=== PATIENT | female | born 1965 | race Two or more races ===

== ENCOUNTER 2025-06-22 09:16 | Outpatient (OUT) | payer MEDICAID, SELFPAY ==
--- OUTSIDE RECORDS SUMMARY | 2023-12-30 11:59 | XMS_ITS | Continuity of Care Document ---
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 Role Phone Benoit Suero DO Unavailable Unavailable Allergies, Adverse Reactions, Alerts Substance Reaction Status Criticality No Known Allergies Active No Inform ation Medications Medication Instructions Dosage Effective Dates (start - stop) Status Comments Trelegy Ellipta 200 mcg-62.5 mcg-25 mcg powder for inhalation inhale 1 puff by inhalation route every day at the same time each day 1.00 puff - Active albuterol sulfate HFA 90 mcg/actuation aerosol inhaler inhale 2 puff by inhalation route every 4 - 6 hours as needed 180 MCG - Active prednisone 20 mg tablet take 1 tablet by oral route 2 times every day bid for 4 days then 1/2 qd for 8 days 20 MG - Active promethazine-DM 6.25 mg-15 mg/5 mL oral syrup take 5 milliliter by oral route every 6 - 8 hours as needed, not to exceed 30 mL in 24 hours 5 milliliter - Active Singulair 10 mg tablet take 1 tablet by oral route every day in the evening 10 MG - Active PreviDent 5000 Booster Plus 1.1 % dental paste Place pea size toothpaste on wet toothbrush and brush thoroughly before bed. Spit excess and do not rinse. Do not eat or drink after use. - Active Prolia 60 mg/mL subcutaneous syringe inject 1 milliliter by subcutaneous route every 6 months in the upper arm, upper thigh or abdomen 60 MG - Active Calcium 500 + D 500 mg (1,250 mg)-200 unit tablet 2 daily - Active Wellbutrin XL 150 mg 24 hr tablet, extended release take 1 tablet by oral route every day 150 MG - Active calcium citrate 250 mg tablet take 2 tablets twice daily - Active omeprazole 20 mg tablet,delayed release 1 tablet by mouth once a day - Active Mucinex DM 30 mg-600 mg tablet,extended release 12 hr take 1 tablet by oral route every 12 hours as needed 1.00 tablet - Active loratadine 10 mg tablet take 1 tablet by oral route every day 10 MG - Active Vitamin D3 50 mcg (2,000 unit) tablet - Active trazodone 150 mg tablet take 1 tablet by oral route every day 150 MG - Active clonidine HCl 0.3 mg tablet take 1 tablet by oral route 2 times every day 0.3 MG - Active Abilify Maintena 400 mg intramuscular suspension,extended release inject (400MG) by intramuscular route every month 400 MG - Active Cymbalta 20 mg capsule,delayed release take 1 capsule by oral route 2 times every day - Active folic acid 1 mg tablet take 1 tablet by oral route every day 1 MG - Active Procedures Procedure Date IMMUNIZATION ADMIN FLU VAC NO PRSV 4 SARAH 3 YRS+ OFFICE/OUTPATIENT VISIT, EST COVID-19 Antigen Test COVID-19 Antigen Test OFFICE/OUTPATIENT VISIT, EST OFFICE/OUTPATIENT VISIT, EST Intraoral-periapical 1st Film Limcbthfp-bglzdcbwgf-efry Additional Apr Rgzvziaee-jyqxwrceii-pysc Additional Apr Nutrit Couns For Control Of [place] Dis Apr Oral Hygiene Instruction Prophylaxis Adult Periodic Oral Eval Estab Patient 2021 Oral Hygiene Instruction Treatment Completed Resin Two Surfaces Anterior Resin Two Surfaces Anterior Resin Three Surfaces Anterior 1 Resin Three Surfaces Anterior 1 OFFICE/OUTPATIENT VISIT, EST Intraoral-periapical 1st Film 1 Kkcltozgc-qextlgxhcy-ncxt Additional Jul Eqpbhqjag-ksmijkbbyz-lnfz Additional Jul Resin Three Surfaces Anterior 1 Resin Two Surfaces Anterior Resin 4+ W/incis Angle Anterior 021 Resin Three Surfaces Anterior 1 Oral Hygiene Instruction ROUTINE VENIPUNCTURE OFFICE/OUTPATIENT VISIT, EST Oral Hygiene Instruction Prophylaxis Adult OFFICE/OUTPATIENT VISIT, EST OFFICE/OUTPATIENT VISIT, EST OFFICE/OUTPATIENT VISIT, EST OFFICE/OUTPATIENT VISIT, EST OFFICE/OUTPATIENT VISIT, EST OFFICE/OUTPATIENT VISIT, EST OFFICE/OUTPATIENT VISIT, EST OFFICE/OUTPATIENT VISIT, EST OFFICE/OUTPATIENT VISIT, EST OFFICE/OUTPATIENT VISIT, EST No Charge Prophylaxis Adult Nutrit Couns For Control Of [place] Dis Jun Oral Hygiene Instruction PPE Panoramic Film Intraoral-periapical 1st Film 0 Tjxpnonix-hobbnvbpqr-zbuk Additional Jun Obgavnyky-fjutkilmbn-ypfo Additional Jun Comp Oral Eval New/estab Patient 2019 Oral Hygiene Instruction PPE Advance Directives Directive Yes / No Effective Date File Name No Information Encounters Encounter Description Practice Location Reason(s) For Visit Diagnoses Date Provider Providers Copied on Encounter [facility], [address] [place] [address], [id number] , [place] tel:[phone] [facility] No Information 4 Plank DO Laboy. [address] [place] [address], [id number] , [place]. tel:[phone] [facility], [address] [place] [address], [id number] , [place] tel: [phone] [facility] No Information 3 Visci DO Eliceo. [address], [place], [id number] , [place]. tel: [phone] OFFICE/OUTPA TIENT VISIT, [facility], [address] [place] [address], [id number] , [place] tel: [phone] [facility] sick/er f/u (chief complaint) Chronic obstructive pulmonary disease, unspecified COPD typeBody mass index [BMI] 19.9 or less, adult 3 Toward MD Funes. [address] [place] [address], [id number] , [place]. tel: [phone] [facility], [address] [place] [address], [id number] , [place] tel: [phone] COVID [facility] Encounter for screening for COVID-19 3 Visci DO Eliceo. [address] [place] [address], [id number] , [place]. tel: [phone] OFFICE/OUTPA TIENT VISIT, [facility], [address] [place] [address], [id number] , [place] tel: [phone] [facility] F/U (chief complaint) Body mass index [BMI] 20.0-20.9, adultCogwheel rigidityTremorTachyc ardia 2 Nimo Bruno. [address] [place] [address], [id number] , [place]. tel:[phone] OFFICE/OUTPA TIENT VISIT, [facility], [address] [place] [address], [id number] , [place] tel: [phone] [facility] refill (chief complaint) Chronic obstructive pulmonary disease, unspecified COPD typeAnxietyEssential (primary) hypertensionCigarett e smoker motivated to quitScreening for lung cancerBody mass index [BMI] 21.0-21.9, adult Wilfred-2 2 Toward MD Funes. [address], [place], [id number] , [place]. tel:[phone] [facility], [address] [place] [address], [id number] , [place] tel: [phone] [facility] Adult Prophy (chief complaint) Encounter for screening for dental disorders 2 Kristina Oakes. [address] [place], [address], [place]. tel: [phone] [facility], [address] [place] [address], [id number] , [place] tel: [phone] [facility] Fill (chief complaint) Encounter for screening for dental disorders 1 Abel Mcneal. [address] [place] [address], [id number] , [place]. tel: [phone] [facility], [address] [place] [address], [id number] , [place] tel: [phone] [facility] No Information 1 Nimo Bruno. [address] [place] [address], [id number] , [place]. tel: [phone] OFFICE/OUTPA TIENT VISIT, EST [facility], [address] [place] [address], [id number] , [place] tel: [phone] [facility] f/u (chief complaint) Age-related osteoporosis without current pathological fractureEssential (primary) hypertensionEsophage al varices without bleedingBody mass index [BMI] 21.0-21.9, adult Sep-2 1 Plank DO Benoit. [address] [place] [address], [id number] , [place]. tel:[phone] [facility], [address] [place] [address], [id number] , [place] tel: [phone] [facility] Filling (chief complaint) Encounter for screening for dental disorders 1 Abel Mcneal. [address] [place] [address], [id number] , [place]. tel: [phone] [facility], [address] [place] [address], [id number] , [place] tel: [phone] [facility] Osteoporosis, unspecified osteoporosis type, unspecified pathological fracture presenceClosed fracture of multiple ribs, unspecified laterality, sequela 1 Liborio Siegel. [address] [place] [address], [address], [place]. tel: [phone] [facility], [address] [place] [address], [id number] , [place] tel: [phone] [facility] No Information 1 Liborio Siegel. [address] [place] [address], [id number], [place]. tel: [phone] OFFICE/OUTPA TIENT VISIT, [facility], [address] [place] [address], [id number] , [place] tel: [phone] [facility] b/p follow up (chief complaint) Osteoporosis, unspecified osteoporosis type, unspecified pathological fracture presenceHypertension , unspecified typeShortness of breathBody mass index [BMI] 20.0-20.9, adultHistory of rib fracture 1 Liborio Siegel. [address] [place] [address], [address], [place]. tel: [phone] [facility], [address] [place] [address], [id number] , [place] tel: [phone] [facility] Prophy (chief complaint) Encounter for screening for dental disorders 1 Abel Mcneal. [address] [place] [address], [id number] , [place]. tel: [phone] OFFICE/OUTPA TIENT VISIT, [facility], [address] [place] [address], [id number] , [place] tel: [phone] HO [facility] F/U BP (chief complaint) Body mass index [BMI] 19.9 or less, adultRib painHypertension, unspecified typeHeart rate fastClosed fracture of multiple ribs, unspecified laterality, sequelaShortness of breathChronic obstructive pulmonary disease, unspecified COPD type 1 Liborio Siegel. [address] [place] [address], [address], [place]. tel: [phone] OFFICE/OUTPA TIENT VISIT, [facility], [address] [place] [address], [id number] , [place] tel: [phone] HO Mc F/U R Rib Pain (chief complaint) Body mass index [BMI] 20.0-20.9, adultHypertension, unspecified typeDizzinessClosed fracture of one rib of right side with routine healing, subsequent encounterCigarette smoker motivated to quit 1 Liborio Siegel. [address] [place] [address], [id number], [place]. tel: [phone] OFFICE/OUTPA TIENT VISIT, [facility], [address] [place] [address], [id number] , [place] tel: [phone] [facility] Alexandro BP recheck (chief complaint) Rib painHypertension, unspecified typeBody mass index [BMI] 19.9 or less, adultDizzinessNausea and vomiting, intractability of vomiting not specified, unspecified vomiting type 1 Liborio Siegel. [address] [place] [address], [address], [place]. tel: [phone] OFFICE/OUTPA TIENT VISIT, [facility], [address] [place] [address], [id number] , [place] tel: [phone] HO Mc BP Check (chief complaint) Body mass index [BMI] 20.0-20.9, adultHeart rate fastHypertension, unspecified typeCigarette smoker motivated to quit 1 Liborio Siegel. [address] [place] [address], [id number], [place]. tel: [phone] OFFICE/OUTPA TIENT VISIT, [facility], [address] [place] [address], [id number] , [place] tel: [phone] [facility] Alexandro f/u bp (chief complaint) Body mass index [BMI] 20.0-20.9, adultHypertension, unspecified typeCigarette smoker motivated to quit 1 Liborio Siegel. [address] [place] [address], [address], [place]. tel: [phone] OFFICE/OUTPA TIENT VISIT, [facility], [address] [place] [address], [id number] , [place] tel: [phone] [facility] Alexand[facility] BP Check (chief complaint) Body mass index [BMI] 20.0-20.9, adultCoughHypertensi on, unspecified typeClosed fracture of one rib of right side with routine healing, subsequent encounter 1 Liborio Siegel. [address] [place] [address], [address], [place]. tel: [phone] [facility], [address] [place] [address], [id number] , [place] tel: [phone] [facility] Closed fracture of multiple ribs of right side, initial encounter 1 Liborio Siegel. [address] [place] [address], [address], [place]. tel: [phone] OFFICE/OUTPA TIENT VISIT, [facility], [address] [place] [address], [id number] , [place] tel: [phone] [facility] (chief complaint) Rib painCoughNasal congestion 1 Liborio Siegel. [address] [place] [address], [address], [place]. tel: [phone] OFFICE/OUTPA TIENT VISIT, [facility], [address] [place] [address], [id number] , [place] tel: [phone] [facility], resp infection (chief complaint) Shortness of breathCoughLoss of smellNasal congestionRib pain 1 Liborio Siegel. [address] [place] [address], [address], [place]. tel: [phone] OFFICE/OUTPA TIENT VISIT, [facility], [address] [place] [address], [id number] , [place] tel: [phone] [facility] f/u bp/labs (chief complaint) Body mass index [BMI] 19.9 or less, adultHypertension, unspecified typeNeeds smoking cessation educationCoughChroni c obstructive pulmonary disease, unspecified COPD typeAscending aortic aneurysm 1 Liborio Sigeel. [address] [place] [address], [address], [place]. tel: [phone] OFFICE/OUTPA TIENT VISIT, [facility], [address] [place] [address], [id number] , [place] tel: [phone] [facility] est care (chief complaint)P HQ (chief complaint) Hypertension, unspecified typeFatigue, unspecified typeAnxietyDepressio n, unspecified depression typeScreening mammogram, encounter forNeeds smoking cessation educationEncounter to establish careAsthma, unspecified asthma severity, unspecified whether complicated, unspecified whether persistentHeart rate fastBody mass index [BMI] 20.0-20.9, adult 0 Liborio Siegel. [address] [place] [address], [address], [place]. tel: [phone] [facility], [address] [place] [address], [id number] , [place] tel: [phone] Dental Clinic Encounter for screening for dental disorders 0 Abel Mcneal. [address] [place] [address], [id number] , [place]. tel: [phone] [facility], [address] [place] [address], [id number] , [place] tel: [phone] [facility] Prophy (chief complaint) Encounter for screening for dental disorders 0 Negro Velasco. [address], [place], [id number] , [place]. tel: [phone] [facility], [address], [place], [id number] , [place] tel: [phone] Dental Clinic Encounter for screening for dental disorders 0 0 Abel Mcneal. [address], [place], [id number] , [place]. tel: [phone] Family History Family Member Type Diagnosis Age At Onset No Information Immunizations Vaccine Date Status Comments Flulaval/ Fluarix administered Source: Ne w Immunization Record Ashley COVID refused Source: New Im munization Record Payers Payer name Insurance type Covered democrat ID Authorkristena cathleenshelby(s) Anthem Medicaid ABD [id number] [id number] Medicaid Wrap - [facility] [place] [id number] Anthem Medicaid ABD 0223 [id number] Medicaid Wrap - [facility] [place] [id number] Medicaid Wrap - [facility] [place] [id number] Social History Type Description Quantity Date Captured Comments Alcohol Use Details Unknown Caffeine Use Details Unknown Tobacco Use Status No Information Smoking Status No Information Sex Female Sexual Orientation Straight or heterosexual Gender Identity Female Chief Complaint And Reason For Visit No Information Reason For Referral Reason For Referral No Information Plan Of Treatment Date Type Action Status Goal Diabetes screening. Due on due Goal Urinalysis. Due on 24 due Goal Depression scree nadege. Due on due Goal Tdap Vaccine. Due on 2023 due Goal PRAPARE ASSESSMENT. Due on due Goal FIT. Due on due Goal Colonoscopy. Due on 024 due Goal Tdap. Due on due Goal Hepatitis C scre ening. Due on due Goal Lipid panel. Due on due Goal Unhealthy drug u se screening. Due on due Goal CT-Colonography. Due on due Goal Influenza vaccine. Due on due Goal FOBT. Due on due Goal HPV. Due on due Goal FIT-DNA. Due on due Goal Zoster vaccine ( ). Due on due Goal Lipid panel. Due on due Goal FOBT. Due on due Goal Hep A. Due on du e Goal Hepatitis C scre ening. Due on due Goal Unhealthy drug u se screening. Due on due Goal Diabetes screening. Due on due Goal Urinalysis. Due on due Goal PRAPARE ASSESSMENT. Due on due Goal FIT. Due on due Goal Influenza vaccine. Due on due Goal Tdap. Due on due Goal Zoster vaccine ( ). Due on due Goal Colonoscopy. Due on 023 due Goal FIT-DNA. Due on due Goal Hep A. Due on du e Goal Depression scree nadege. Due on due Goal HPV. Due on due Goal Tdap Vaccine. Due on [address]-Colonography. Due on due Goal Depression scree nadege. Due on due Goal Tdap. Due on due Goal PRAPARE ASSESSMENT. Due on due Goal Colonoscopy. Due on due Goal Influenza vaccine. Due on due Goal FOBT. Due on due Goal Zoster vaccine ( ). Due on due Goal Lipid panel. Due on 025 due Goal Diabetes screening. Due on due Goal Urinalysis. Due on due Goal PRAPARE ASSESSMENT. Due on due Goal Tdap. Due on due Goal Colonoscopy. Due on 023 due Goal Influenza vaccine. Due on due Goal Zoster vaccine ( ). Due on due Goal Lipid panel. Due on 025 due Goal FOBT. Due on due Goal Depression scree nadege. Due on due Goal Diabetes screening. Due on due Goal Urinalysis. Due on due Goal Lifestyle education regardin g diet completed Goal Urinalysis. Due on due Goal Diabetes screening. Due on due Goal PRAPARE ASSESSMENT. Due on due Goal Lipid panel. Due on due Goal Depression scree nadege. Due on due Goal FOBT. Due on due Goal Tdap. Due on due Goal Influenza vaccine. Due on due Goal Colonoscopy. Due on due Goal Zoster vaccine ( ). Due on due Goal Lifestyle education regardin g diet completed Goal ECG. Due on due Goal Urinalysis. Due on due Goal Diabetes screening. Due on due Goal FOBT. Due on due Goal Zoster vaccine ( ). Due on due Goal Tdap. Due on due Goal Influenza vaccine. Due on due Goal Colonoscopy. Due on due Goal Depression scree nadege. Due on due Goal Lipid panel. Due on due Goal Weight-reducing diet educati on completed Goal Diabetes screening. Due on due Goal ECG. Due on due Goal Urinalysis. Due on due Goal Diabetes screening. Due on N due Goal Urinalysis. Due on due Goal ECG. Due on due Goal ECG. Due on due Goal Urinalysis. Due on due Goal Diabetes screening. Due on due Goal Dietary manageme nt education, guidance, and counseling completed Goal Urinalysis. Due on due Goal Diabetes screening. Due on due Goal ECG. Due on due Goal Urinalysis. Due on due Goal Diabetes screening. Due on due Goal ECG. Due on due Goal ECG. Due on due Goal Diabetes screening. Due on A due Goal Urinalysis. Due on due Goal ECG. Due on due Goal Urinalysis. Due on due Goal Diabetes screening. Due on due Goal Dietary manageme nt education, guidance, and counseling completed Goal Urinalysis. Due on due Goal ECG. Due on due Goal Diabetes screening. Due on due Goal ECG. Due on due Goal Diabetes screening. Due on due Goal Urinalysis. Due on due Goal Dietary manageme nt education, guidance, and counseling completed Goal ECG. Due on due Goal Diabetes screening. Due on due Goal Urinalysis. Due on due Goal Dietary manageme nt education, guidance, and counseling completed Goal Diabetes screening. Due on due Goal ECG. Due on due Goal Urinalysis. Due on due Goal Dietary manageme nt education, guidance, and counseling completed Goal Tobacco cessation counseling completed Goal Urinalysis. Due on due Goal Diabetes screening. Due on A due Goal ECG. Due on due Goal Dietary manageme nt education, guidance, and counseling completed Goal ECG. Due on due Goal Diabetes screening. Due on due Goal Urinalysis. Due on due Goal Dietary manageme nt education, guidance, and counseling completed Goal Tobacco cessation counseling completed Goal Diabetes screening. Due on due Goal ECG. Due on due Goal Urinalysis. Due on due Goal Dietary manageme nt education, guidance, and counseling completed Goal ECG. Due on due Goal Urinalysis. Due on due Goal Diabetes screening. Due on due Goal Urinalysis. Due on due Goal ECG. Due on due Goal Diabetes screening. Due on due Goal ECG. Due on due Goal Diabetes screening. Due on due Goal Urinalysis. Due on due Goal ECG. Due on due Goal Diabetes screening. Due on due Goal Urinalysis. Due on due Goal Tobacco cessation counseling completed Goal Dietary manageme nt education, guidance, and counseling completed Goal Diabetes screening. Due on due Goal Urinalysis. Due on due Goal ECG. Due on due Goal Dietary manageme nt education, guidance, and counseling completed Goal Tobacco cessation counseling completed Referral Ordered: Neurology (related to Tremor) ordered Referral Ordered: Referrals: Neurology. Evaluate and treat ordered Referral Ordered: X-RAY EXAM CHEST 2 VIEWS ordered Referral Ordered: ELECTROCARDIOGRAM, COMPLETE ordered Referral Ordered: CT Thorax W/O Dye ordered Referral Ordered: Orthopedic Surgery (related to Closed fracture of multiple ribs, unspecified laterality, sequela) ordered Referral Ordered: Referrals: Orthopedic Surgery. Evaluate and treat ordered Referral Ordered: Referrals: Rheumatology. Evaluate and treat ordered Referral Ordered: Pulmonology (related to Chronic obstructive pulmonary disease, unspecified COPD type) ordered Referral Ordered: X-Ray Exam Of Ribs/Chest Posteroanterior 4 Views ordered Referral Ordered: DXA BONE DENSITY, AXIAL ordered Referral Ordered: Complete PFT With Bronchodilator ordered Referral Ordered: Referrals: Pulmonology. Evaluate and treat ordered Referral Ordered: X-Ray Exam Of Ribs Bilateral 3 Views ordered Referral Ordered: X-RAY EXAM CHEST 4+ VIEWS ordered Referral Ordered: Pulmonology (related to Chronic obstructive pulmonary disease, unspecified COPD type) ordered Referral Ordered: Referrals: Pulmonology. Evaluate and treat. Diagnostic testing ordered Referral Ordered: BREATHING CAPACITY TEST ordered Referral Ordered: SCR MAMMO BI INCL CAD ordered Future Order: Lab Order CBC With Differential/Platelet ([id number]), Ordered on: Ordered Future Order: Lab Order Comp. Me tabolic Panel (14) ([id number]), Ordered on: Ordered Future Order: Lab Order Hemoglob in A1c ([id number]), Ordered on: Ordered Future Order: Lab Order Lipid Pa ivonne With LDL/HDL Ratio ([id number]), Ordered on: Ordered Future Order: Lab Order TSH+Free T4 ([id number]), Ordered on: Ordered Future Order: Lab Order Uric Aci d, Serum ([id number]), Ordered on: Ordered Future Order: Lab Order Vitamin B12 and Folate ([id number]), Ordered on: Ordered Future Order: Lab Order Vitamin D, 25-Hydroxy ([id number]), Ordered on: Ordered Future Order: Lab Order Magnesiu m, Serum ([id number]), Ordered on: Ordered Future Order: Lab Order Basic Me tabolic Panel (8) ([id number]), Sent on: Sent Future Order: Lab Order 2019 Nov el Coronavirus (COVID-19), MANI ([id number]), Ordered on: Ordered History Of Present Illness Encounter Date Complaint History Of Isaac nt Illness sick/er f/u Pt here for sick visit/er f/u. Covid test negative. Pt states she was evaluated [place] [facility] about 2 [place] ago d/t sob, states she was dx with Influenza A. Pt states she was prexcribed Tamaflu, Mucinex , Predinisone and Teslon Pearls. Pt here today with c/o continued cough, chest tightness and sob. GRACE KenneyHere for ER f/u after influenza A. she has not fuly recovered yet. still hs some cough and sob. off maintenance inhaler. former smoker quit about 1.5 yrs ago. no current fever, mild to mod cough mostly [employer]. COVID - today. F/U Pt is here for F /U due to being worried that she has parkinsons disease. Pt states she has a prominent tremor in her whole body. States it almost reminds her of if she were to have a seizure. States she also has shuffling gait. Denies any drooling when eating or drinking. States she is also concerned because her heart rate is always high, states it sometimes feels like her heart skips a beat. Denies any other concerns. States she does have depression and anxiety but is on medication. Denies smoking.//Malik EDWARDS.Mammogram: 3 years ago.//Malik EDWARDS,Colonoscopy: 4 years ago.//Malik EDWARDS. refill Patient requesti ng refill on cymbicort, lisinopril, singulair, and dulera. Has the dulera with her. Was prescribed it a month ago at [facility] for COPD. Patient states she was not SOB/Wheezing until she ran out of dulera. Patient was using dulera QID. Ran out about 2 weeks ago. Patient denies any distress today and does not appear in distress. Has been going to urgent care for refills on medications so has not run out up until this point.Maura Salazar RNHere for f/u on htn, copd, mood, smoking. She is doing ok on current meds, likes dulera more than symbicort. Has not had a lung cance rscreen , last ct chset was nov 2020 for CTA. Last labs was about a year ago. Other issues are doing fine. MD GABRIEL Adult Prophy Adult Prophy Fill f/u Pt here for f/u appt. Pt c/o feeling fatigued, dizzy and her body just feels heavy, pt states this started about 1 month ago. Pts BP is 98/68, states she has not taken her bp medication today. Pt denies any other issues or concerns. GRACE Kenney Filling Continue with tr sintia b/p follow up Pt here for f/u BP. Pt c/o feeling sob and congested, states she was evaluated at [facility] urgent care about 5 days ago and prescribed an antibiotic and steroids. Pt states she really doesn't feel any better. Pt denies any other issues or concerns. GRACE KenneyVenipuncture successful on first attempt in R AC, pt tolerated well. Tatyana Kenney noted. States she had a sinus infection and has completed the antibiotic and steroids. Continues with breathing treatments. States she tends to get short of breath quicker than usual. Denies any fever. Has not obtained PFT yet, states she will call to reschedule. States the Xrays taken at urgent care showed rib fractures on left side, number 3,4,5,6 from her previous fall. Was informed they were healing properly. Taking BP medications, including the metoprolol, 1/2 tab as discussed. HR improved, states she saw it was 88 the other day. Also taking her lisinopril/hctz. Denies any dizziness or recent falls.Discussed results of bone density scan completed. May 30. ROGELIO Mancera Prophy F/U BP Pt here today to follow up BP and discuss a recent fall. Pt states her BP was good this morning. Pt states that been up and down but then states its been really good. Pt states that they had Taco night last . Pt states there was salsa on the floor and she slipped, flew in the air and fell on her back. Pt states her back nor head hurt which she hit both and her ribs. PT states she did not go to the ER at all. Pt states she knows that she broke her ribs. Pt states she talked about getting a x-ray and states she didnt need one. Pt states she is in so much pain that she is having issues with breathing. Pt states she didnt decline to schedule she states she was in [place] at the time they called. Pt states she is going to reschedule. PT states her breathing is bad and would like to get Mucinex. No other issues or concernsTGkierra Dillon noted. Discussed with patient history of falling and breaking ribs and also weight loss. States she was trying to lose weight to get rib of her abdominal fat and admits to not eating much. States she is having hard time taking deep breaths again with pain to left side over ribs. Discussed missed pulmonary appt; states she was out of town and will call to get appt rescheduled.Admits to not taking her metoprolol, is concerned it will make her BP too low. Denies any recent episodes of dizziness. 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 Pt states it is but it inst getting better. Pt states she feels like she had a set back last night. pt states she felt like she moved wrong and it went bloop . No other issues or concernsTGkierra Dillon noted. Brought home blood pressure cuff in to review readings. Majority of readings were elevated, 148/100's, 153/101 HR ranged from 102-125. Few readings were around 117/80's. Patient feels these readings are too low for her and states she is not taking her metoprolol. Patient had called last week to inform of passing out at home and was advised to go to the ER. States she did not go, and she is feeling better. No longer dizzy. Did stop smoking which helped decrease her cough. Has not used her nicotine patch, but is taking the wellbutrin to help with cravings. States rib pain remains, but is getting a little better. Unsure if Naproxen is helping her rib pain. States she is trying to plan another trip to [place], but recently lost her job from having to call off so much. Explained need to get better control of BP and dizziness prior to going to [place]. Requests refill on some of her medications, including ProAir and Singulair. ROGELIO Mancera BP recheck Here for BP rech zohra and rib pain.Patient has bruising under right eye. States Friday night she ate some bad chicken that had sat out and developed nausea with vomiting all night long. Developed pain into right rib while vomiting. Friday night states she woke up dizzy in the morning, proceeded to walk and then states she passed out and fell, striking her face on something. Woke up on floor by bedroom. States rib pain continued and wondered if she had another fractured rib. Went to urgent care Friday to obtain an xray, but states they were closing and unable to see her. Today pain continues to right rib area. Thinks it may be broken again. Has stopped smoking, trying not to cough. Breathing is more shallow due to pain with taking deep breaths. Denies any further episodes of dizziness. Denies any headache or blurred vision.States she alternates diarrhea with constipation all the time. Questions if irritable bowel. Denies any blood in stool. Asked when her last colonoscopy was, states it was last year; thought it was normal. Encouraged f/u with gastro for GI complaints. Had started on Metoprolol to assist with BP management and HR during last office visit. States she forgot to bring her list of BP readings in, but states they were 120/80's at home. Also states her heartrate has improved since taking the medication. Denies any chest pain/palpitations. ROGELIO Mancera1440- RECEIVED MESSAGE THAT PATIENT CALLED THE OFFICE TO REPORT THAT SHE PASSED OUT TWICE SINCE THE APPT THIS MORNING. STATES SHE WOULD LIKE TO HAVE THE CT SCAN COMPLETED THAT WE DISCUSSED. ATTEMPTED TO CALL PATIENT BACK TO INFORM OF NEED TO GO IMMEDIATLEY TO ER FOR EVALUATION. NO ANSWER ON PHONE NUMBER LISTED. MESSAGE LEFT TO HAVE SOMEONE DRIVE HER OR CALL THE AMBULANCE TO TRANSPORT TO THE ER. WITH PASSING OUT TWICE, WILL NEED FURTHER ASSESSMENT, ANTICIPATE LABS/IV/EKG AND CT SCAN. ROGELIO MANCERA BP Check Pt here today fo r BP check. No other issues or cocnernsTGrodi LPNPatient states she left her suitcase in [place] and did not have any of her BP medication since then. States her BP readings have been good. Upon asking for specific numbers, states usually 130/100's. States her HR is always high, in 110-120's. Denies any palpitations or chest pain. States she can tell it is high and is a little shakey. States she is trying to decrease her smoking, is down to 4 cigarettes/day. will remove patch when smoking. requests refill on same dose of patch. ROGELIO Mancera f/u bp Pt here for f/u BP. Pt states that she did not take any medications this morning d/t getting up late, states she usually takes them at 4am but fell back to sleep. Pt c/o difficulty swallowing when she eats, pt states she did have a test a few months ago that showed she had thickening of her esophagus. Pt c/o non-productive moist cough, states she only coughed stuff up when she was taking Mucinex. Pt also asking about smoking cessation, states she would like an rx for nicotine patch. Pt would also like to discuss Clonidine dosage and frequency. Pablito, RNPatient states she has home blood pressure machine at home. Has been checking but did not bring list. Reports diastolic readings were elevated, above 90. Reports improvement of rib pain since fracture, continues taking Naproxen. Has chronic cough, but improved. States at times mucous seemed to get caught in her throat due to the history of incidental finding of thickened esophagus. Has not seen any specialist in past, was only informed after xrays. States she is attempting to stop smoking. Had a few leftover Nicotine patches at home and would like a refill. States she is down to 5-6 cigarettes/day. ROGELIO Mancera BP Check Pt here today fo r BP check. pt states she still has her cough. Pt states it feels like she is choking when she is coughing. Pt states she has alot of bloody mucus from her nose that she thinks is running down her nose when she is sleeping. Pt states she has a dry cough. Pt states once in a while she can get stuff up. Pt states it does not feel like it is in her chest its more in her throat. No other issues or concernsTGrodi LPNAbove noted. Patient has history of recent URI, COVID tested negative. Had CXR completed, positive for rib fracture patient reports from coughing. Medications were prescribed to assist with congestion and cough. States Mucinex has helped and would like to continue on it. States she is using her Albuterol nebulizer daily and then will also use her rescue inhaler 3x/day. Has history of COPD and has appointment with specialist in less than 1 month in January. Denies any fever. Patient reports her blood pressure was good a few days ago when she had it checked before her COVID immunization. States she has a blood pressure monitor at home but has not used it because it needs batteries. Reports doing well with BP medication change, had added HCTZ to Lisinopril. ROGELIO Mancera Telehealth Telehealth phone conversation this am to follow-up on patient's respiratory complaints from 3 days ago. COVID tested negative. Patient states she was unable to afford the Mucinex prescription, but had a sample dose. States medication seemed to help. Patient states she gets paid today ane will be able to pick it up. Patient continues to complain of harsh cough, non-productive cough. States has to sleep sitting upright and keeps her awake at night. Using Tessalon perle without relief. C/o increased rib pain with coughing and is concerned of rib fracture. Has a history of fracture and questions if she has another. Using aspirin for her pain. Patient requesting CXR. Denies fever or increased shortness of breath. Using her inhaler. Did quarantine at home while awaiting COVID results. ROGELIO Mancera Telehealth, resp infection Conta cted patient at home on phone. Patient states she developed cough with shortness of breath on Friday. States she is coughing so hard, it makes her ribs hurt. Has some nasal congestion and sinus drainage. Denies fever. States she also seemed to have lost her sense of smell. Patient attempted inhaler and Tessalon perle without relief. ROGELIO Mancera f/u bp/labs Pt here for f/u BP and lab review. Pt c/o extreme fatigue and tiredness in her LE, states she was evaluated in ER about a month ago and dx. with Aortic Aneurysm. Pt feels like this is causing her tiredness. GRACE KenneyER report reviewed, visit was from 09/28/2020. CT report from ER resulted in 4.2cm Ascending aortic aneurysm without evidence of leaking or rupturing. Patient was evaluated for elevated HR and anxiety and was given Ativan. Patient is requesting more Ativan. Patient seeing [facility] counseling and Recovery for her anxiety, has appointment this Friday for dose of Abilify. Instructed to discuss medication and treatment plan for her anxiety with them. Labs reviewed from office visit 2 weeks ago. TSH normal. Patient taking vitamins as prescribed. Discussed positive Hep C antibody, patient states Dr Fuentes is following her regarding that, had appointment 2 months ago and is due for follow-up in January. Patient returned from [place] last night. Stays there every 3 months for 10 days. Did fly on airplane and states she had a negative COVID test prior to flying. Patient presents with a harsh, nonproductive cough. States she saw urgent care and was prescribed a Z-pack few weeks ago. Using Albuterol inhaler. Is out of her nebulizer. Denies any fever, nasal congestion. States her cough is chronic from COPD. Unsure of last FPT and has not seen specialist for her COPD. Using Symbicort and Singulair. Patient reports she is taking BP meds as prescribed. Denies headache. States readings were elevated in urgent care and she has not rechecked it since restarting her Lisinopril. ROGELIO Mancera PHQ PHQ shows modera te severe depression. GRACE Kenney est care Pt here to [facility]. Pt c/o fast heart rate, states this causes her anxiety. Pt also c/o of her head buzzing at times, states that she thinks it happens because her BP is elevated, denies headaches. Pt requesting refills of her inhaler and also requesting rx for Wellbutrin. Pt denies any other issues or concerns. Pablito, RNPrevious patient of Xuan Carlson, then saw Dr Lujan, requesting to become established here. Not taking BP medication. Requests refill of vitamins, inhaler for asthma.Specialists: Seeing Dr Fuentes for ulcer, chronic nausea and liver problemsSaw provider in [place] for ENT, history of deviated septum Psych: Seeing [facility] counseling and recovery, awaiting to become established with a provider. States history of anxiety and depression. Seemed to be more controlled when she resided in [place]. Needs medications adjusted, had stopped taking Wellbutrin and noticed increase in smoking habits.Vision-not had an exam in [facility]- Seeing health department for routine [facility] health: Seeing provider in [place], had visit this past summer, but did not obtain her mammogram. ROGELIO Mancera Prophy Prophy Functional Status Date Functional Assessmen t No Information Instructions Date Instruction Additional Infor aura Lifestyle education regarding di et Related to Body mass index [BMI] 19.9 or less, adult Lifestyle education regarding di et Related to Body mass index [BMI] 20.0-20.9, adult Giving encouragement to exercise Related to Body mass index [BMI] 20.0-20.9, adult Giving encouragement to exercise Related to Body mass index [BMI] 21.0-21.9, adult Weight-reducing diet education R elated to Body mass index [BMI] 21.0-21.9, adult Dietary management e ducation, guidance, and counseling Related to Body mass index [BMI] 21.0-21.9, adult Giving encouragement to exercise Related to Body mass index [BMI] 21.0-21.9, adult 1. Obtain PFT testin g2. Go to ER for any increased shortness of breath unrelieved with breathing tx Related to Shortness of breath 1. Reduce sodium and eat a Heart Healthy diet (less than 300mg cholesterol/day)2. Exercise at least 3x/week for at least 30 min/day3. Check Blood pressure at home and keep a log4. Continue Medication, TAKE PRESCRIBED DAILY, do not try to manage on own5. No smoking/Avoid smoke exposure6. Follow-up in 3 months Related to Hypertension, unspecified type Dietary management e ducation, guidance, and counseling Related to Body mass index [BMI] 20.0-20.9, adult Giving encouragement to exercise Related to Body mass index [BMI] 20.0-20.9, adult 1. Reduce sodium and eat a Heart Healthy diet (less than 300mg cholesterol/day)2. Exercise at least 3x/week for at least 30 min/day3. Check Blood pressure at home and keep a log4. Continue Medication5. No smoking/Avoid smoke exposure6. Follow-up in 3 months Related to Hypertension, unspecified type 1. Obtain xray of ri b2. Rest, use NSAIDS as needed for pain3. Return to ER for any increased shortness of breath Related to Rib pain 1. increase protein in diet, more frequent smaller meals Related to Body mass index [BMI] 19.9 or less, adult 1. Obtain bone density scan Rela chanel to Closed fracture of multiple ribs, unspecified laterality, sequela Dietary management e ducation, guidance, and counseling Related to Body mass index [BMI] 19.9 or less, adult Weight monitoring Related to Bod y mass index [BMI] 19.9 or less, adult 1. Continue use of N SAIDS. 2. Go to ER for any increased dyspnea Related to Closed fracture of one rib of right side with routine healing, subsequent encounter 1. Use Nicotine patc h as needed2. Refill on wellbutrin3. Change habits to prevent cravings Related to Cigarette smoker motivated to quit 1. Reduce sodium and eat a Heart Healthy diet (less than 300mg cholesterol/day)2. Check Blood pressure at home and keep a log3. Continue Medication, decrease metoprolol to 1/2 tab daily4. No smoking/Avoid smoke exposure5. Follow-up in 2 weeks Related to Hypertension, unspecified type Giving encouragement to exercise Related to Body mass index [BMI] 20.0-20.9, adult Dietary management e ducation, guidance, and counseling Related to Body mass index [BMI] 20.0-20.9, adult 1. Drink high protei n shakes 2. Eat frequent meals, high protein and carbohydrate diet 3. Increase water intake Related to Body mass index [BMI] 19.9 or less, adult 1. Increase oral flu ids to prevent dehydration2. Call if nausea/vomiting returns3. Go to ER for persistent vomiting for evaluation Related to Nausea and vomiting, intractability of vomiting not specified, unspecified vomiting type 1. Go to ER if dizzi ness returns2. Increase oral fluids, water3. Check BP at home and bring log to next appt4. F/u in 1 week to reassess Related to Dizziness 1. Reduce sodium and eat a Heart Healthy diet (less than 300mg cholesterol/day)2. Check Blood pressure at home and keep a log3. Continue Medication4. No smoking/Avoid smoke exposure5. Follow-up in 1 week Related to Hypertension, unspecified type 1. Obtain outpt xray , will call with results2. Use NAIDS as needed for pain relief3. No smoking4. Deep breathing as tolerated, splint if coughing5. Go to ER for any increased shortness of breath6. F/u in 1 week to reassess pain/breathing Related to Rib pain Giving encouragement to exercise Related to Body mass index [BMI] 19.9 or less, adult Dietary management e ducation, guidance, and counseling Related to Body mass index [BMI] 19.9 or less, adult 1. Reduce sodium and eat a Heart Healthy diet (less than 300mg cholesterol/day)2. Exercise at least 3x/week for at least 30 min/day3. Check Blood pressure at home and keep a log4. Continue Medication, ADD METOPROLOL5. No smoking/Avoid smoke exposure6. Follow-up in 2 weeks for blood pressure check Related to Hypertension, unspecified type 1. Start taking Meto prolol once daily2. Notify is any fatigue, dizziness or breathing problems3. Go to ER if any chest pain or uncontrolled shortness of breath Related to Heart rate fast Giving encouragement to exercise Related to Body mass index [BMI] 20.0-20.9, adult Dietary management e ducation, guidance, and counseling Related to Body mass index [BMI] 20.0-20.9, adult 1. Use Nicotine patches daily Re lated to Cigarette smoker motivated to quit 1. Reduce sodium and eat a Heart Healthy diet (less than 300mg cholesterol/day)2. Exercise at least 3x/week for at least 30 min/day3. Check Blood pressure at home and keep a log4. Change medication to Lisinopril 20mg/HCTZ 25mg daily5. No smoking/Avoid smoke exposure6. Follow-up in 3 months Related to Hypertension, unspecified type Giving encouragement to exercise Related to Body mass index [BMI] 20.0-20.9, adult Dietary management e ducation, guidance, and counseling Related to Body mass index [BMI] 20.0-20.9, adult 1. Continue using na proxen as needed for rib pain2. Notify if any increased shortness of breath Related to Closed fracture of one rib of right side with routine healing, subsequent encounter 1. Take Symbicort da melissa as instructed2. Continue Mucinex 3. Follow-up with pulmonary as scheduled next month Related to Cough 1. Reduce sodium and eat a Heart Healthy diet (less than 300mg cholesterol/day)2. Exercise at least 3x/day for at least 30 min/day3. Check Blood pressure at home and keep a log4. Change BP medication to Lisinopril 20/HCTZ 12.55. No smoking/Avoid smoke exposure6. Follow-up in 1 month Related to Hypertension, unspecified type Giving encouragement to exercise Related to Body mass index [BMI] 20.0-20.9, adult Dietary management e ducation, guidance, and counseling Related to Body mass index [BMI] 20.0-20.9, adult 1. Take Mucinex DM 2 . Frequent handwashing 3. Stop smoking Related to Nasal congestion 1. [facility]bt[facility] at [facility]2. Use Naproxen BID to assist with rib pain3. Call if symptoms increase or go to ER for any difficulty breathing Related to Rib pain 1. Use Phenergan wit h Codeine at nighttime to assist with cough/congestion2. Take Mucinex DM 3. Stop smoking4. Call if symptoms increase or go to ER for any difficulty breathing Related to Cough 1. Call [facility] for COVID-19 testing time2. Take Mucinex DM twice daily3. Use inhaler and Tessalon perle as needed4. Increase oral fluid intake5. Take NSAIDs for rib pain6. Follow-up Friday for telehealth visit7. Go to ER for any increased shortness of breath or fever; or any worsening symptoms Related to Shortness of breath 1 Stop smoking2. No drug use, including cocaine3. Regular exercise, avoid strenuous activity4. Recheck CT scan in 6 months to monitor Related to Ascending aortic aneurysm 1. Go to ER for any concerns for COVID, including increased shortness of breath, fever, congestion Related to Cough Stop smoking Related to Needs smoking cessation education 1. Use Albuterol neb ulizer to assist with wheezing and cough2. Obtain PFT 3. Referral to pulmonary to evaluate and treat4. Go to ER for any increased shortness of breath or wheezing Related to Chronic obstructive pulmonary disease, unspecified COPD type 1. Reduce sodium and eat a Heart Healthy diet (less than 300mg cholesterol/day)2. Exercise at least 3x/day for at least 30 min/day3. Check Blood pressure at home and keep a log4. Add HCTZ to Lisinopril 5. No smoking/Avoid smoke exposure6. Follow-up in 2 weeks Related to Hypertension, unspecified type Giving encouragement to exercise Related to Body mass index [BMI] 19.9 or less, adult Dietary management e ducation, guidance, and counseling Related to Body mass index [BMI] 19.9 or less, adult 1. Check labs for yroid problems causing elevated HR or any electrolyte abnormalities2. Keep log of events, how long lasts, what doing at time, any alleviating or aggregating factors3. No caffeine use4. Stop/decrease smoking5. Possibly order Halter monitor at next office visit6. Go immediately to ER for any sustained elevated HR, dyspnea, or chest pain7. Return in 2 weeks to assess lab results and symptoms Related to Heart rate fast 1. Refill sent for inhaler Relat ed to Asthma, unspecified asthma severity, unspecified whether complicated, unspecified whether persistent 1. Obtain labs today in office2. Schedule vision exam3. Return in 2 weeks to review labs and medication refill at that time Related to Encounter to establish care 1. Referral sent for mammogram screening Related to Screening mammogram, encounter for 1. Continue with brown atment plan as per [facility] counseling and recovery2. Call hotline number at if needed or go immediately to ER for any suicidal ideations Related to Anxiety 1. Check labs, inclu ding TSH level2. Return in 2 weeks to discuss lab results Related to Fatigue, unspecified type 1. Restart Lisinopri l 10mg daily2. Reduce sodium and eat a Heart Healthy diet (less than 300mg cholesterol/day)3. Exercise at least 3x/week for at least 30 min/day4. Check Blood pressure at home and keep a log5. No smoking/Avoid smoke exposure6. Follow-up in 2 weeks for BP recheck Related to Hypertension, unspecified type Giving encouragement to exercise Related to Body mass index [BMI] 20.0-20.9, adult Dietary management e ducation, guidance, and counseling Related to Body mass index [BMI] 20.0-20.9, adult Assessments Type Assessment Date No Information Patient Care Teams Name Effective Dates (start - stop) Status Members No Information
--- OUTSIDE RECORDS SUMMARY | 2025-06-07 08:30 | XMS_ITS ---
Author Organization [facility] Address [address] [place] [address] Care Team Providers [facility] Director Name Role Phone Tahira Kwan Primary Care Provider Sourav Valdovinos Unavailable [phone] Lise Sandoval Unavailable [phone] REASON FOR VISIT MED CENTER @ 1:15PM Social History Sex Assigned At : Social History Observation Description Sex Assigned At Female Encounters Encounter Location Date Provider Diagnosis [facility] [address] [place] [address] 06/07/2025 Lise Sandoval Plan Of Treatment Next Appt Details Provider Name:Lise Fonseca Lori, 07/07/2025 10:15:00 AM, [address], [place], [address], Provider Name:Lise Fonseca Lori, 07/07/2025 11:00:00 AM, [address] [place], [address], Provider Name:Lise Fonseca Lori, 08/08/2025 10:15:00 AM, [address], [place], [address], Provider Name:Lise Fonseca Lori, 08/08/2025 11:00:00 AM, [address] [place], [address], Provider Name:Lise Fonseca Lori, 08/29/2025 11:15:00 AM, [address], [place], [address], Provider Name:Sara jara, 08/29/2025 11:30:00 AM, [address] [facility], [place], [address], Progress Notes * GILL AMADOR MDOB:1965 (59 yo F)Acc No.[id number]:06/07/2025 Patient: GILL CLEMENT Appointment Provider: Morteza Sandoval :1965 A ge:59 Y S ex:Female Date:06/07/2025 Address:[address] [place] [address], [address] Pcp:Tahira Kwan Subjective: * Chief Complaints: * 1 . MED CENTER @ 1:15PM. * Medical History: Objective: * Vitals: Assessment: Plan: * Treatment: * Images: * Electronic signature of SHARRI Barrett FNP on 06/22/2025 at 09:26 AM EDT Sign off status: Pending * Appointment Provider: Morteza Sandoval Date: 0 06/07/2025 Generated for Mirtha brown/Lalo/Ariesitting on: 06/22/2025 09:26 AM EDT
--- OUTSIDE RECORDS SUMMARY | 2025-06-08 09:28 | XMS_ITS ---
Author Organization [facility] Address [address] [place] [address] Care Team Providers Care Crm Specialist Name Role Phone Tahira Kwan Primary Care Provider [phone] Sourav Valdovinos Unavailable [phone] REASON FOR VISIT new rx Social History Sex Assigned At : Social History Observation Description Sex Assigned At Female Encounters Encounter Location Date Provider Diagnosis [facility] [address] [place] [address] 06/08/2025 Tahira Kwan Plan Of Treatment Next Appt Details Provider Name:Lise Fonseca Lori, 07/07/2025 10:15:00 AM, [address], [place], [address], Provider Name:Lise Fonseca Lori, 07/07/2025 11:00:00 AM, [address] [place], [address], Provider Name:Lise Fonseca Lori, 08/08/2025 10:15:00 AM, [address], [place], [address], Provider Name:Lise Fonseca Lori, 08/08/2025 11:00:00 AM, [address], [place], [address], Provider Name:Lise Marian Lori, 08/29/2025 11:15:00 AM, [address], [place], [address], Provider Name:aSra jara, 08/29/2025 11:30:00 AM, [address], [place], [address], Progress Notes * GILL AMADOR MDOB:1965 (59 yo F)Acc No.[id number]:06/08/2025 Patient: GILL CLEMENT :1965 A ge:59 Y S ex:Female Address:[address] [place] [address], [address], [address] Subjective: * Chief Complaints: * N ew rx * Medical History: * Surgical History: * Hospitalization/Major Diagno stic Procedure: * Medications: Objective: * Vitals: * Physical Examination: Assessment: Plan: * Treatment: * Procedure Codes: * true * Date: Generated for Mirtha brown/Lalo/Winniesmitting on: 0 06/22/2025 09:25 AM EDT
--- OUTSIDE RECORDS SUMMARY | 2025-06-22 09:26 | XMS_ITS | Encounter Summary ---
Author Organization [facility] Healthcare Address [address] [place] [address] Care Team Providers Care Press Operator Assistant Name Role Phone Unallocated, Noms Provider Primary Care Provi mike Noah Toribio DO Unavailable [phone] Ace Weir DO Primary Care Provider Unallocated, Noms Provider Primary Care Provi mike Encounter Details Date Type Department Care Team (Late st Contact Info) Description 01/10/2025 Abstract [facility] [address] [facility] [address] [place] [address] Unallocated, [place] [address] Social History Tobacco Use Types Packs/Day Years Used Date Smoking Tobacco: Never Smokeless Tobacco: Never Alcohol Use Standard Drinks/Week Comments Never 0 (1 standard drink = 0.6 oz pur e alcohol) Comments Unknown Sex and Gender Information Value Date Recorded Sex Assigned at Not on file Legal Sex Female 8:21 PM EDT Gender Identity Not on file Sexual Orientation Not on file documented as of this encounter Plan of Treatment Not on file documented as of this encounter Visit Diagnoses Not on filedocumented in this encounter Care Teams Press Operator Assistant Relationship Specialty Start Date End Date Unallocated, Carlos Watkins MD [address] [place] [address] PCP - General Family Medicine 11/18/23 01/10/25 Noah Toribio DO [address] [place] [address] PCP - [facility] Juan [facility] 02/23/24 Ace Weir DO [address] [facility] [address] [place] [address] PCP - General Family Medicine 01/11/25 01/16/25 Unallocated, Noms June, [address] [place] [address] PCP - General Family Medicine 01/17/25 documented as of this encounter
--- OUTSIDE RECORDS SUMMARY | 2025-06-22 09:26 | XMS_ITS | Clinical Summary ---
Author Organization [facility] Healthcare Address [address] [place] [address] Care Team Providers Care Marbleizer Name Role Phone Noah Toribio DO Unavailable [phone] Unallocated, Noms Provider Primary Care Provi mike Allergies Active Allergy Reactions Criticality Noted Date Comments Cephalexin Hives 08/11/2023 Medications metroNIDAZOLE (Metrolotion) 0.75 % lotion lotionIndicati ons:Other rosacea Apply thin layer to face once daily in HS 59 mL 11 3 Active Additional Information Patient not taking.Reported on 01/11/2025 ARIPiprazole ER (Abilify Maintena) 300 MG injection syringe as directed Intramuscular Active ALPRAZolam (Xanax) 0.25 MG tablet 1 (one) time each day at the same time. 3 Active albuterol HFA 90 mcg/act inhaler 1 puff as needed Act maureen Fluticasone-Um eclidin-Vilant (Trelegy Ellipta) 100-62.5-25 MCG/ACT aerosol powder 1 puff Activ e cloNIDine (Catapres) 0.1 MG tablet 1 (one) time each day at the same time. Active cholecalcifero l (Vitamin D3) 25 MCG (1000 UT) tablet 1 (one) time each day at the same time. Active cholecalcifero l (Vitamin D-3) 50 MCG (2000 UT) tablet Take 2,000 Units by mouth in the morning. Active Vraylar 3 MG capsule 1 (one) time each day at the same time. 3 Active montelukast (Singulair) 4 MG chewable tablet Chew 4 mg at bedtime. Active lisinopril 2.5 MG tablet Take by mouth Daily. Active busPIRone (Buspar) 10 MG tablet Take 10 mg by mouth in the morning and 10 mg before bedtime. Active Austedo XR 24 MG tablet sustained-rele ase 24 hour take 1 tablet by mouth once daily WITH 12MG TABLET 4 Active gabapentin (Neurontin) 300 MG capsule Take 300 mg by mouth at bedtime Active ipratropium (Atrovent) 0.02 % nebulizer solution 500 mcg nebulization every 6 hours x7 days, then every 6 hours as needed for cough, wheezing, and/or shortness of breath. 3 Active ipratropium-al buterol (Duo-Neb) 0.5-2.5 mg/3 mL nebulizer solution inhale contents of 1 vial ( 3 milliliters ) in nebulizer by mouth and INTO THE LUNGS every 6 hours for 30 3 Active Vyvanse 30 MG capsule 1 (one) time each day at the same time 4 Active omeprazole (PriLOSEC) [address] capsule TAKE ONE CAPSULE BY MOUTH ONCE DAILY 30 MINUTES BEFORE MORNING MEAL for 30 Active QUEtiapine (SEROquel) 25 MG tablet Take 25 mg by mouth at bedtime Active traZODone (Desyrel) 150 MG tablet 1 (one) time each day at the same time 3 Active guaiFENesin-co deine (Robitussin-AC ) 100-10 MG/5ML syrupIndicatio ns:Acute cough Take 10 mL by mouth every 6 (six) hours if needed for cough 120 mL 4 Active Additional Information Patient not taking.Reported on 01/11/2025 azithromycin (Zithromax) 250 MG tabletIndicati ons:Bronchitis Take 2 tabs on day 1 and 1 tab on days 2-5 then stop 6 tablet 5 Active benzonatate (Tessalon Perles) 100 MG capsuleIndicat ions:Acute cough Take 1 capsule (100 mg) by mouth 3 (three) times a day as needed for cough Do not crush or chew. 21 capsule 5 Active Active Problems No known active problems Encounters Date Type Department Care Team Description 04/20/2025 Abstract [facility] [address] [place] [address] Unallocated, Devon Watkins MD 04/13/2025 Abstract [facility] [address] [place] [address] Unallocated, Devon Watkins MD 04/13/2025 External Result Encounter [facility] External Department Unsolicited Noah Aguirre, DO 04/13/2025 External Result Encounter [facility] External Department Unsolicited Noah Aguirre, DO 04/12/2025 Abstract [facility] [place] [facility] [address] [place] [address] Ace Weir, DO 04/12/2025 Abstract [facility] [place] [facility] [address] [place] [address] Ace Weir, DO 04/12/2025 Abstract [facility] [address] [place] [address] Ace Weir, DO 04/12/2025 Abstract [facility] [address] [place] [address] Ace Weir, DO 04/12/2025 External Result Encounter [facility] External Department Unsolicited Noah Aguirre, DO 04/12/2025 External Result Encounter [facility] External Department Unsolicited Noah Aguirre, DO from Last 3 Months Family History * Patient is adopted Medical History Relation Name Comments No Known Problems Father No Known Problems Mother Relation Name Status Comments Daughter Alive Father Mother Son Alive Social History Tobacco Use Types Packs/Day Years Used Date Smoking Tobacco: Never Smokeless Tobacco: Never Tobacco Cessation:Counseling Given: Not Answered Alcohol Use Standard Drinks/Week Comments Never 0 (1 standard drink = 0.6 oz pur e alcohol) Comments Unknown Sex and Gender Information Value Date Recorded Sex Assigned at Not on file Legal Sex Female 8:21 PM EDT Gender Identity Not on file Sexual Orientation Not on file Last Filed Vital Signs Vital Sign Reading Time Taken Comments Blood Pressure 144/62 01/11/2025 5:46 PM EST Pulse 92 01/11/2025 5:46 PM EST Temperature 37.1 C (98.7 F) 01/11/2025 5:46 PM EST Respiratory Rate - - Oxygen Saturation 96% 01/11/2025 5:46 PM EST Inhaled Oxygen Concentration - - Weight 58.1 kg (128 lb) 04/17/2024 12:09 PM EDT Height 157.5 cm (5' 2 ) 03/16/2023 12:00 PM EDT Body Mass Index 23.41 03/16/2023 12:00 PM EDT Plan of Treatment Health Maintenance Due Date Last Done Comments CT Colonography 1965 Colonoscopy 1965 Colorectal Cancer Screening 1965 FIT-DNA 1965 FIT 1965 FOBT 1965 Sigmoidoscopy 1965 Pap Smear 1985 Cervical Cancer Screening 1994 HPV/Cotest 1994 Mammogram 2004 Influenza Vaccine (#1) 2025 10/21/2023 Procedures Procedure Name Priority Date/Time Associated Diagnosis Comments CREATININE Routine 04/13/2025 4:15 AM EDT UREA NITROGEN, BODY FLUID Routine 04/13/2025 4:15 AM EDT ELECTROLYTE PANEL Routine 04/13/2025 4:1 5 AM EDT CBC WITH AUTO DIFFERENTIAL Routine 04/13/2025 4:15 AM EDT CBC WITH AUTO DIFFERENTIAL Routine 04/12/2025 3:39 AM EDT COMPREHENSIVE METABOLIC PANEL Routine 04/12/2025 3:39 AM EDT from Last 3 Months Results * Urea nitrogen, body fluid (04/13/2025 4:15 AM EDT) BUN 19 7 - 25 mg/dL 04/13/2025 5:55 AM EDT [facility] Other Topography unknown / Unknown 04/13/2025 4:15 AM EDT 04/13/2025 4:33 AM EDT us Noah Aguirre DO LAB BODY FLUIDS AND STOOLS DELORES GÓMEZ Final Result [facility] [address] [facility] [place] [address], [facility] [address] [place] [address] * (ABNORMAL) CBC auto differential (04/13/2025 4:15 AM EDT) Only the most recent of2 resultswithin the time period is included. WBC 5.7 3.8 - 11.6 10*3/uL 04/13/2025 5:03 AM EDT [facility] UNCORRECTED WHITE BLOOD COUNT 5.7 3.8 - 11.6 10*3/uL 04/13/2025 5:03 AM EDT [facility] RBC 4.27 3.60 - 5.00 10*6/uL 04/13/2025 5:03 AM EDT [facility] HEMOGLOBIN 12.1 11.8 - 15.4 g/dL 04/13/2025 5:03 AM EDT [facility] HEMATOCRIT 37.4 34.0 - 46.4 % 04/13/2025 5:03 AM EDT [facility] MCV 87.5 80 - 100 fL 04/13/2025 5:03 AM EDT [facility] MCH 28.4 24.7 - 34.3 pg 04/13/2025 5:03 AM EDT [facility] MCHC 32.4 32.0 - 35.0 g/dL 04/13/2025 5:03 AM EDT [facility] RED CELL DISTRIBUTION WIDTH, RDW 14.2 11.9 - 15.3 % 04/13/2025 5:03 AM EDT [facility] PLATELET COUNT 83(L) 150 - 450 10*3/uL 04/13/2025 5:03 AM EDT [facility] MEAN PLATELET VOLUME, MPV 8.3 6.3 - 10.7 fL 04/13/2025 5:03 AM EDT [facility] NEUTROPHILS, % 75.0 . % 04/13/2025 5:03 AM EDT [facility] LYMPHOCYTES, % 17.0 . % 04/13/2025 5:03 AM EDT [facility] MONOCYTE/MACROPHA GE, % 6.6 . % 04/13/2025 5:03 AM EDT [facility] EOSINOPHILS, % 1.0 . % 04/13/2025 5:03 AM EDT [facility] BASOPHILS, % 0.4 . % 04/13/2025 5:03 AM EDT [facility] NRBC 0.1 0 - 0.5 /100{WBC} 04/13/2025 5:03 AM EDT [facility] NEUTROPHILS 4.3 1.8 - 7.7 10*3/uL 04/13/2025 5:03 AM EDT [facility] LYMPHOCYTES 1.0 1.00 - 4.8 10*3/uL 04/13/2025 5:03 AM EDT [facility] MONOCYTES 0.4 0.0 - 0.8 10*3/uL 04/13/2025 5:03 AM EDT [facility] EOSINOPHILS 0.1 0.0 - 0.45 10*3/uL 04/13/2025 5:03 AM EDT [facility] BASOPHILS 0.0 0.0 - 0.2 10*3/uL 04/13/2025 5:03 AM EDT [facility] Blood (Blood) 04/13/2025 4:1 5 AM EDT 04/13/2025 4:33 AM EDT us Noah Aguirre DO LAB BLOOD ORDERABLES Final Resu lt Performing Organization Address [facility]/State/[facility] Co de Phone Number [facility] [address] [place] [address], [facility] [address] [place] [address] * Creatinine (04/13/2025 4:15 AM EDT) CREATININE 0.72 0.60 - 1.20 mg/dL 04/13/2025 5:55 AM EDT [facility] ESTIMATED GFR >60.0 mL/Min 04/13/2025 5:55 AM EDT [facility] CREATININE [facility] 68.73 04/13/2025 5:55 AM EDT [facility] Other Topography unknown / Unknown 04/13/2025 4:15 AM EDT 04/13/2025 4:33 AM EDT Noah Aguirre DO LAB BLOOD ORDERABLES Final Resu lt [facility] [address] [place] [address], [facility] [address] [place] [address] * Electrolyte panel (04/13/2025 4:15 AM EDT) Sodium 142 136 - 145 mmol/L 04/13/2025 5:55 AM EDT [facility] Potassium, Bld 3.8 3.5 - 5.1 mmol/L 04/13/2025 5:55 AM EDT [facility] Chloride 105 98 - 107 mmol/L 04/13/2025 5:55 AM EDT [facility] Carbon Dioxide 30.0 21.0 - 31.0 mmol/L 04/13/2025 5:55 AM EDT [facility] Anion Gap 10.8 6.0 - 15.0 meq/L 04/13/2025 5:55 AM EDT [facility] Other Topography unknown / Unknown 04/13/2025 4:15 AM EDT 04/13/2025 4:33 AM EDT Noah Aguirre DO LAB BLOOD ORDERABLES Final Resu lt [facility] [address] [place] [address], [facility] [address] [place] [address] * (ABNORMAL) Comprehensive metabolic panel (04/12/2025 3:39 AM EDT) Glucose 93 70 - 100 mg/dL 04/12/2025 4:53 AM EDT [facility] Comment: Random Glucose Reference Range is dependent on time and content of last meal. Glucose of more than 200 mg/dL in a nonstressed, ambulatory subject supports the diagnosis of Diabetes Mellitus. ADA recommended reference range BUN 20 7 - 25 mg/dL 04/12/2025 4:53 AM T [facility] CREATININE 0.95 0.60 - 1.20 mg/dL 04/12/2025 4:53 AM EDT [facility] ESTIMATED GFR >60.0 mL/Min 04/12/2025 4:53 AM [facility] Sodium 140 136 - 145 mmol/L 04/12/2025 4:53 AM [facility] Potassium, Bld 3.8 3.5 - 5.1 mmol/L 04/12/2025 4:53 AM [facility] Chloride 107 98 - 107 mmol/L 04/12/2025 4:53 AM [facility] Carbon Dioxide 28.2 21.0 - 31.0 mmol/L 04/12/2025 4:53 AM [facility] Anion Gap 8.6 6.0 - 15.0 meq/L 04/12/2025 4:53 AM [facility] Calcium 8.6 8.6 - 10.3 mg/dL 04/12/2025 4:53 AM [facility] TOTAL PROTEIN 5.6(L) 6.4 - 8.9 g/dL 04/12/2025 4:53 AM [facility] ALBUMIN LEVEL 3.6 3.5 - 5.7 g/dL 04/12/2025 4:53 AM [facility] GLOBULIN 2.0 g/dL 04/12/2025 4:53 AM [facility] ALBUMIN/GLOBULIN RATIO 1.8 04/12/2025 4:53 AM [facility] BILIRUBIN,TOTAL 0.4 0.3 - 1.0 mg/dL 04/12/2025 4:53 AM [facility] ASPARTATE AMINO TRANSFERASE 22 13 - 39 U/L 04/12/2025 4:53 AM [facility] ALANINE AMINOTRANSFERASE 14 7 - 52 U/L 04/12/2025 4:53 AM [facility] ALKALINE PHOSPHATASE 58 34 - 104 U/L 04/12/2025 4:53 AM EDT [facility] CREATININE [facility] 52.09 04/12/2025 4:53 AM EDT [facility] Other Topography unknown / Unknown 04/12/2025 3:39 AM EDT 04/12/2025 3:58 AM EDT Noah Aguirre DO LAB BLOOD ORDERABLES Final Resu lt [facility] [address] [place] [address], [facility] [address] [facility] [place] [address] from Last 3 Months Insurance [place] [employer] [place] Care Teams Marbleizer Relationship Specialty Start Date End Date Noah Toribio DO [address] [place] [address] PCP - [facility] Juan BUILDING TRADES INSTRUCTOR 02/23/24 Unallocated, Noms MD June [address] [place] [address] PCP - General Family Medicine 01/17/25
--- OUTSIDE RECORDS SUMMARY | 2025-06-22 09:26 | XMS_ITS | Encounter Summary ---
Author Organization [facility] tem Address [id number] [address] [place] [address] Care Team Providers Care Cash Application Representative Name Role Phone Pcp, Not In System Primary Care Provider Unavail able Encounter Details Date Type Department Care Team (Late st Contact Info) Description 03/19/2023 Orders Only [facility] [address] [place] [address] Alyce Kwan RN Social History Tobacco Use Types Packs/Day Years Used Date Smoking Tobacco: Former Cigarettes Smokeless Tobacco: Never Alcohol Use Standard Drinks/Week Comments Yes 0 (1 standard drink = 0.6 oz pur e alcohol) socially PHQ-2 Answer Date Recorded Total Score 0 10/27/2019 Childcare Answer Date Recorded Childcare Unknown 05/04/2019 Employment Answer Date Recorded Employment Unknown 05/04/2019 Purpose - Life Answer Date Recorded Purpose and direction in life Unknown Comments No Sex and Gender Information Value Date Recorded Sex Assigned at Not on file Legal Sex Female 4:51 PM EDT Gender Identity Not on file Sexual Orientation Not on file documented as of this encounter Plan of Treatment Not on file documented as of this encounter Visit Diagnoses Not on filedocumented in this encounter Additional Health Concerns Infection Onset Date Last Indicated Resolved Time COVID-19 Rule-Out 06/27/2023 06/27/2023 06/27/2023 7:45 AM EDT Assessment Noted Time PHQ-9 Depression Total Score: 0 10/27/20 9:42 AM EST documented as of this encounter Care Teams Cash Application Representative Relationship Specialty Start Date End Date Pcp, [place] [address] PCP - General Family Medicine 07/29/23 documented as of this encounter
--- OUTSIDE RECORDS SUMMARY | 2025-06-22 09:26 | XMS_ITS | Encounter Summary ---
Author Organization [facility] Address [address] [facility] [place] [address] Care Team Providers Care Physically Impaired Teacher Name Role Phone Noah Toribio DO Unavailable [phone] Unallocated, Noms Provider Primary Care Provi mike Encounter Details Date Type Department Care Team ([facility] st Contact Info) Description 04/13/2025 Abstract [facility] [address] [place] [phone] Unallocated, Jorges Provider, MD [address] [place], [place] [phone] Social History Tobacco Use Types Packs/Day Years [...] on filedocumented in this encounter Care Teams Physically Impaired Teacher Relationship Specialty Start Date End Date Noah Toribio DO [address] [facility] [address] [place] [address] PCP - [facility]OS Martinez STEEL HANGER 02/23/24 Unallocated, Noms Provider, [address] [place] [address] PCP - General Family Medicine 01/17/25 documented as of this encounter
--- OUTSIDE RECORDS SUMMARY | 2025-06-22 09:26 | XMS_ITS | Encounter Summary ---
Author Organization [facility] Healthcare Address [address] [facility] [place] [address] Care Team Providers Care Line Assembler Aircraft Name Role Phone Unallocated, Noms Provider Primary Care Provi mike Noah Toribio DO Unavailable Ace Weir DO Primary Care Provider Unallocated, Noms Provider Primary Care Provi mike Encounter Details Date Type Department Care Team (Late st Contact Info) Description 09/05/2023 Abstract [facility] [address] [facility] [facility] [address] [place] [address] Nolvia Hernandez, WEIGHTS AND MEASURES SEALER [address] [facility] [address] [place] [address] Social History Tobacco Use Types Packs/Day Years [...] on filedocumented in this encounter Care Teams Line Assembler Aircraft Relationship Specialty Start Date End Date Unallocated, Noms Provider, [address] [place] [address] PCP - General Family Medicine 11/18/23 01/10/25 Noah Toribio DO [address] [place] [address] PCP - [facility] 02/23/24 Ace Weir DO [address] [facility] [address] [place] [address] PCP - General Family Medicine 01/11/25 01/16/25 Unallocated, Noms June, [address] [place] [address] PCP - General Family Medicine 01/17/25 documented as of this encounter
--- OUTSIDE RECORDS SUMMARY | 2025-06-22 09:26 | XMS_ITS | Clinical Summary ---
Author Organization [facility] Address [address] [place] [address] Phone Care Team Providers Care Merchandise Supervisor Name Role Phone Unavailable Primary Care Provider Unavailabl e Encounters Date Type Department Care Team Description 04/15/2025 Scanned Document [facility] [address] [place] [address] Scanning, Generic Provider from Last 3 Months Social History Tobacco Use Types Packs/Day Years Used Date Smoking Tobacco: Never Assessed Comments Unknown Sex and Gender Information Value Date Recorded Sex Assigned at Not on file Legal Sex Female 9:11 AM EDT Gender Identity Not on file Sexual Orientation Not on file Plan of Treatment Health Maintenance Due Date Last Done Comments CT Colonography 1964 Colonoscopy 1964 Colorectal Cancer Screening 1964 FIT-DNA (Cologuard) 1964 FIT 1964 HIV Screening 1964 Lipid Panel 1964 Sigmoidoscopy 1964 Yearly Adult Physical 1964 MMR Vaccines (1 of 1 - Stand stuart series) 1965 Hepatitis C Screening 1982 Cervical Cancer Screening 1985 HPV/Cotest 1985 Pap Smear 1985 DTaP/Tdap/Td Vaccines (1 - Tdap) 1986 Mammogram 2004 Pneumococcal Vaccine (1 of 1 - PCV) 2014 Zoster Vaccines (1 of 2) 2014 COVID-19 Vaccine (1 - 2023-2 5 season) 2024 Influenza Vaccine (#1) 2025 RSV High Risk: (Elderly (60+ ) or Population) (1 - 1-dose 75+ series) 2039 HIB Vaccines Aged Out No longer eligi ble based on patient's age to complete this topic HPV Vaccines Aged Out No longer eligi ble based on patient's age to complete this topic Hepatitis A Vaccines Aged Out No long er eligible based on patient's age to complete this topic Hepatitis B Vaccines Aged Out No long er eligible based on patient's age to complete this topic IPV Vaccines Aged Out No longer eligi ble based on patient's age to complete this topic Meningococcal Vaccine Aged Out No ismael adams eligible based on patient's age to complete this topic Rotavirus Vaccines Aged Out No longer eligible based on patient's age to complete this topic Procedures Procedure Name Priority Date/Time Associated Diagnosis Comments ECHOCARDIOGRAM 04/15/2025 from Last 3 Months Results * Echocardiogram (04/15/2025) Narrative 04/15/2025 Ordered by an unspecified provider. us Generic Provider Scanning CV ECHO PROCEDURES Fin al Result from Last 3 Months Insurance AN[employer]M MEDICAID AN[employer]M MEDICAID
--- OUTSIDE RECORDS SUMMARY | 2025-06-22 09:26 | XMS_ITS | Encounter Summary ---
Author Organization [facility] Address [address] [facility] [place] [address] Care Team Providers Care Bundler Seasonal Greenery Name Role Phone Noah Toribio DO Unavailable [phone] Unallocated, Noms Provider Primary Care Provi mike Encounter Details Date Type Department Care Team ([facility] st Contact Info) Description 04/20/2025 Abstract [facility] DEPARTMENT [id number] [place] [phone] Unallocated, Jorges Provider, MD [address] [place], [place] [id number] Social History Tobacco Use Types Packs/Day Years [...] on filedocumented in this encounter Care Teams Bundler Seasonal Greenery Relationship Specialty Start Date End Date Noah Toribio DO [address] [facility] [address] [place] [address] PCP - CARLOS Martinez CIGAR BANDER HAND 02/23/24 Unallocated, Noms Provider, [address] [place] [address] PCP - General Family Medicine 01/17/25 documented as of this encounter
--- OUTSIDE RECORDS SUMMARY | 2025-06-22 09:26 | XMS_ITS | Clinical Summary ---
Author Organization Parallels tem Address [facility] [id number] [address] [place] [address] Care Team Providers Care Medical Radiation Therapist Name Role Phone Pcp, Not In System Primary Care Provider Unavail able Allergies Active Allergy Reactions Criticality Noted Date Comments Cephalexin Hives 10/02/2021 Medications * This document contains information received from the source organization and may not represent a complete record from that organization. thiamine (vitamin B-1) 100 mg tablet Take 1 tablet (100 mg total) by mouth. 8 Active hydrOXYzine (VISTARIL) 50 mg capsule take 1 capsule by mouth twice a day if needed 0 8 Active montelukast (SINGULAIR) 10 mg tablet Take 1 tablet (10 mg total) by mouth. Active traZODone (DESYREL) 150 mg tablet Take 150 mg by mouth nightly. 8 Active ALPRAZolam (XANAX) 0.25 mg tablet Take 1 tablet (0.25 mg total) by mouth 3 (three) times a day as needed for anxiety. Active fluticasone-umec lidin-vilanter (TRELEGY ELLIPTA) 200-62.5-25 mcg blister with device Inhale 1 puff in the morning. Active gabapentin (NEURONTIN) 300 mg capsule Take 1 capsule (300 mg total) by mouth 3 (three) times a day. Active cholecalciferol, vitamin D3, 2,000 units tablet Take 1 tablet (2,000 Units total) by mouth in the morning. Active aripiprazole (ABILIFY IM) Inject 400 mg into the appropriate muscle every 30 (thirty) days. LAST INJECTION February Active guaiFENesin (MUCINEX) 600 mg tablet extended release 12hr Take 1 tablet (600 mg total) by mouth every 12 (twelve) hours. 60 tablet 3 Active ipratropium (ATROVENT) 0.02 % nebulizer solutionIndicati ons:COPD exacerbation ([facility] 500 mcg nebulization every 6 hours x7 days, then every 6 hours as needed for cough, wheezing, and/or shortness of breath. 300 mL 2 3 Active albuterol (PROVENTIL,WAYNE ARETHA) 2.5 mg /3 mL (0.083 %) nebulizer solutionIndicati ons:COPD exacerbation ([facility] 2.5 mL nebulization every 6 hours x7 days, then every 6 hours as needed for cough, wheezing, and/or shortness of breath. 240 mL 2 3 Active predniSONE (DELTASONE) 10 mg tablet 40 mg for 5 days, 30 mg for 4, 20 mg for 3, 10 mg for 2, then stop 40 tablet 3 Active Active Problems Problem Noted Date Diagnosed Date Chronic respiratory failure with hypoxia and hyp ercapnia 06/27/2023 COPD with acute exacerbation 03/07/2023 Hypomagnesemia 03/07/2023 Nasal congestion 01/13/2020 S/P nasal septoplasty 08/24/2019 Nasal septal perforation 11/10/2018 Epistaxis 11/10/2018 Sinusitis 11/10/2018 Nasal septal deviation 11/10/2018 Recurrent depression 09/25/2017 Suicidal ideation 09/24/2017 Resolved Problems Problem Noted Date Diagnosed Date Resolved Date COPD exacerbation 06/27/2023 07/29/2023 Social History Tobacco Use Types Packs/Day Years Used Date Smoking Tobacco: Former Cigarettes Smokeless Tobacco: Never Alcohol Use Standard Drinks/Week Comments Yes 0 (1 standard drink = 0.6 oz pur e alcohol) socially PHQ-2 Answer Date Recorded Total Score 0 10/27/2019 Childcare Answer Date Recorded Childcare Unknown 05/04/2019 Employment Answer Date Recorded Employment Unknown 05/04/2019 Hunger Screening Answer Date Recorded Within the past 12 months we worried whether our food would run out before we got money to buy more. Never True 07/27/2023 Within the past 12 months th e food we bought just didn't last and we didn't have money to get more. Never True 07/27/2023 Purpose - Life Answer Date Recorded Purpose and direction in life Unknown Comments No Sex and Gender Information Value Date Recorded Sex Assigned at Not on file Legal Sex Female 4:51 PM EDT Gender Identity Not on file Sexual Orientation Not on file Last Filed Vital Signs Vital Sign Reading Time Taken Comments Blood Pressure 107/91 07/29/2023 11:00 AM EDT Primary nurse notified Pulse 111 07/29/2023 11:00 AM EDT Temperature 36.8 C (98.2 F) 07/29/2023 11:00 AM EDT Respiratory Rate 18 07/29/2023 11:0 0 AM EDT Oxygen Saturation 92% 07/29/2023 11: 00 AM EDT Inhaled Oxygen Concentration - - Weight 48.2 kg (106 lb 4.8 oz) 07/29/2023 5:51 AM EDT Height 160 cm (5' 3 ) 07/27/2023 9:41 PM EDT Body Mass Index 18.83 07/27/2023 9:41 PM EDT Plan of Treatment Health Maintenance Due Date Last Done Comments Depression Screening 1976 DTaP,Tdap and Td Vaccines (1 - Tdap) 1983 Pap Smear 1985 Zoster (Shingles) Vaccine (1 of 2) 2014 COVID-19 Vaccine (3 - season) 07/25/202412/2020, 06/29/2021 Tobacco Screening 07/27/2024 07/27/2023 Adult BMI Screening 07/29/2024 07/29/2023 Influenza Vaccine 07/25/2025 10/21/2023 Goals Goal Patient Goal Type Associated Problems Recent Progress Patient-Stated? Author safe discharge to home General Yes Destiney Wade, RN Note: Evaluation of progress towards goal: safe transition from hospital to home alone with family/friends support. Medical Devices Implanted Type Area Ironmolder Device Identifier Shelf Expiration Date Model / Serial / Lot Btn Sept Nsl Tiffany Dev - Sn/A - [id number] Implanted:Qty : 1 on 08/02/2019 by Paulo Marques MD PhD at [facility] Other Implant N/A: Nose USE MDTR ENT F/ENT 06/29/2027 [id number] / N/A / [id number] Insurance [facility] Advance Directives * Full Code (Latest Code Status on File) Date Activated Date Inactivated Comments 07/27/2023 10:32 PM 07/29/2023 4:28 PM * Full Code Date Activated Date Inactivated Comments 06/27/2023 8:16 AM 06/29/2023 2:08 PM * Full Code Date Activated Date Inactivated Comments 03/07/2023 11:25 PM 03/09/2023 4:24 PM Care Teams Medical Radiation Therapist Relationship Specialty Start Date End Date Pcp, Not In System [employer] [id number] PCP - General Family Medicine 07/29/23
--- OUTSIDE RECORDS SUMMARY | 2025-06-22 09:26 | XMS_ITS | Clinical Summary ---
Author Organization [facility] Address [address] [place] [address] Care Team Providers Care Attorney At Law Name Role Phone Unavailable Primary Care Provider Unavailabl e Allergies No known active allergies Medications MAGED MAINTENA 400 mg sers injection 1 Active DULoxetine (CYMBALTA) 60 mg capsule 1 Active DULoxetine (CYMBALTA) 30 mg capsule 1 Active lisinopril-hydr oCHLOROthiazide (PRINZIDE, ZESTORETIC) 20-25 mg per tablet 1 Active cholecalciferol (VITAMIN D3) 50 mcg (2,000 unit) tablet Take 1 tablet by mouth once daily. 1 Active traZODone (DESYREL) 150 mg tablet Take 150 mg by mouth daily at bedtime. Active ProAir RespiClick 90 mcg/actuation breath activated inhale 2 puffs by mouth and INTO THE LUNGS every 4 to 6 hours if needed 1 Active budesonide-form oterol (SYMBICORT) 160-4.5 mcg/actuation inhaler Inhale 2 Puffs as instructed. 9 Active montelukast (SINGULAIR) 10 mg tablet Take 10 mg by mouth daily at bedtime. Active cloNIDine HCl (CATAPRES) 0.1 mg tablet 0.4 mg. 0 Active aspirin 81 mg cap Take by mouth once daily. Active multivitamin with folic acid (THERA, ONE DAILY) 400 mcg Multivitamin With Folic Acid (Thera) 400 mcg tablet Active 1 TAB PO Daily December 23, 2019 1:17pm 0 Active azithromycin (ZITHROMAX) 250 mg tablet take 2 tablets by mouth on day 1 then take 1 tablet by mouth once daily for 4 days 1 Active buPROPion XL (WELLBUTRIN XL) 150 mg 24 hr tablet Take 1 tablet by mouth once daily. 9 Active meloxicam (MOBIC) 7.5 mg tablet Take 1 tablet by mouth once daily as needed for pain (back pain). 30 tablet 2 1 Active Active Problems Problem Noted Date Diagnosed Date Upper back pain on left side 10/04/2021 Myalgia 10/04/2021 Encounter to establish care 10/04/2021 Social History Tobacco Use Types Packs/Day Years Used Date Smoking Tobacco: Some Days Cigarettes Smokeless Tobacco: Never PHQ-2 Answer Date Recorded PHQ-2 score 1 05/08/2021 Area Deprivation Index Answer Date Caden rded National Score (1-100), lower number is lower ri sk Not on file 05/08/2021 State Score (1-10), lower number is lower risk N ot on file 05/08/2021 Data from: https://www.neighborhoodatlas.medicine.[facility].edu/. Last address used for calculation Not on file 05/08/2021 Comments Unknown Sex and Gender Information Value Date Recorded Sex Assigned at Not on file Legal Sex Female 3:54 PM EST Gender Identity Not on file Sexual Orientation Not on file Last Filed Vital Signs Vital Sign Reading Time Taken Comments Blood Pressure 166/118 10/04/2021 8:58 AM EST man ual Pulse 116 10/04/2021 8:48 AM EST Temperature 36.4 C (97.5 F) 05/08/2021 9:57 AM EDT Respiratory Rate - - Oxygen Saturation 98% 05/08/2021 9:57 AM EDT Inhaled Oxygen Concentration - - Weight 50.8 kg (112 lb) 05/08/2021 9:57 AM EDT Height 160 cm (5' 3 ) 05/08/2021 9:57 AM EDT Body Mass Index 19.84 05/08/2021 9:57 AM EDT Plan of Treatment Health Maintenance Due Date Last Done Comments Anxiety Screening 1982 Depression Screening 1982 HIV Screening 1982 Hepatitis C Screening 1982 DTaP,Tdap,Td Vaccine (1 - Tdap) 1983 Cervical Cancer Screening [address] Colonography 2009 Cologuard (FIT-DNA) 2009 Colonoscopy 2009 Sigmoidoscopy 2009 Pneumococcal Vaccine: 50+ (1 of 1 - PCV) 2014 Shingrix Vaccine (1 of 2) 2014 Colorectal Cancer Screening 07/21/2019 Fecal Occult Blood 07/21/2019 07/21/2018 Diabetes Screening 01/04/2023 01/04/2020, 0 07/21/2019, 01/09/2019, Additional history exists Lipid Screening 07/20/2023 07/20/2018 Influenza Vaccine (#1) 2025 RSV Vaccine (1 - 1-dose 75+ series) 2039 Procedures Procedure Name Priority Date/Time Associated Diagnosis Comments MRI OUTSIDE CD DICOM IMPORT 04/15/2025 XR OUTSIDE CD DICOM IMPORT 04/14/2025 CT OUTSIDE CD DICOM IMPORT 04/14/2025 CT OUTSIDE CD DICOM IMPORT 04/11/2025 CT OUTSIDE CD DICOM IMPORT 04/11/2025 CT OUTSIDE CD DICOM IMPORT 04/11/2025 CT OUTSIDE CD DICOM IMPORT 04/11/2025 CT OUTSIDE CD DICOM IMPORT 04/11/2025 from Last 3 Months Results * MR-MR thoracic spine wo con IMPORT (04/15/2025) Anatomical Region Laterality Modality Other 04/15/2025 Narrative 04/17/2025 3:42 PM EDT Images were obtained outside of [facility] Procedure Note Provider, [facility] [place] - 04/17/2025 Images were obtained outside of [facility] us Ccf Provider MRI Final Result * SR-XR lumbar spine 2-3V* IMPORT (04/14/2025) Anatomical Region Laterality Modality Other 04/14/2025 Narrative 04/17/2025 3:43 PM EDT Images were obtained outside of [facility] Procedure Note Provider, [facility] [place] - 04/17/2025 Images were obtained outside of [facility] Provider RADIOLOGY Final Result * PA-CT thoracic spine wo con IMPORT (04/14/2025) Anatomical Region Laterality Modality Other 04/14/2025 Narrative 04/17/2025 3:43 PM EDT Images were obtained outside of [facility] Procedure Note Provider, [facility] [place] - 04/17/2025 Images were obtained outside of [facility] Provider RADIOLOGY Final Result * CT-CT head/brain wo con IMPORT (04/11/2025) Anatomical Region Laterality Modality Other 04/11/2025 Narrative 04/17/2025 3:51 PM EDT Images were obtained outside of [facility] Procedure Note Provider, [facility] [place] - 04/17/2025 Images were obtained outside of [facility] Provider RADIOLOGY Final Result * CT-CT cervical spine wo con IMPORT (04/11/2025) Anatomical Region Laterality Modality Other 04/11/2025 Narrative 04/17/2025 3:50 PM EDT Images were obtained outside of [facility] Procedure Note Provider, [facility] [place] - 04/17/2025 Images were obtained outside of [facility] Cc Provider RADIOLOGY Final Result * CT-CT angio abdomen pelvis IMPORT (04/11/2025) Anatomical Region Laterality Modality Other 04/11/2025 Narrative 04/17/2025 3:47 PM EDT Images were obtained outside of [facility] [place] - 04/17/2025 Images were obtained outside of [facility] Provider RADIOLOGY Final Result * CT-CT angio chest IMPORT (04/11/2025) Anatomical Region Laterality Modality Other 04/11/2025 Narrative 04/17/2025 3:47 PM EDT Images were obtained outside of [facility] [place] - 04/17/2025 Images were obtained outside of [facility] Provider RADIOLOGY Final Result * CT-CT elbow RT wo con IMPORT (04/11/2025) Anatomical Region Laterality Modality Other 04/11/2025 Narrative 04/17/2025 3:45 PM EDT Images were obtained outside of [facility] [place] - 04/17/2025 Images were obtained outside of [facility] Provider RADIOLOGY Final Result from Last 3 Months Insurance ANTHEM [employer] MEDICAID OF [place]
--- OUTSIDE RECORDS SUMMARY | 2025-06-22 09:26 | XMS_ITS | Encounter Summary ---
Author Organization [facility] Address [address] [place] [address] Phone Care Team Providers Care Channel Rebuilder Name Role Phone Unavailable Primary Care Provider Unavailabl e Encounter Details Date Type Department Care Team (Late st Contact Info) Description 04/15/2025 Scanned Document [facility] [address] [place] [phone] Scanning, Generic Provider Social History Tobacco Use Types Packs/Day Years Used Date Smoking Tobacco: Never Assessed Comments Unknown Sex and Gender Information Value Date Recorded Sex Assigned at Not on file Legal Sex Female 9:11 AM EDT Gender Identity Not on file Sexual Orientation Not on file documented as of this encounter Plan of Treatment Not on file documented as of this encounter Procedures Procedure Name Priority Date/Time Associated Diagnosis Comments ECHOCARDIOGRAM 04/15/2025 documented in this encounter Results * Echocardiogram (04/15/2025) Narrative 04/15/2025 Ordered by an unspecified provider. us Generic Provider Scanning CV ECHO PROCEDURES Fin al Result documented in this encounter Visit Diagnoses Not on filedocumented in this encounter
--- OUTSIDE RECORDS SUMMARY | 2025-06-22 09:26 | XMS_ITS | Encounter Summary ---
Author Organization [facility] Address [address] [place] [address] Care Team Providers Care Utilities Equipment Repairer Name Role Phone Unallocated, Noms Provider Primary Care Provi mike Noah Toribio DO Unavailable [phone] Ace Weir DO Primary Care Provider Unallocated, Noms Provider Primary Care Provi mike Encounter Details Date Type Department Care Team (Late st Contact Info) Description 09/09/2023 Abstract [facility] [address] [address] [place] [address] Erika Paige, LIMO DRIVER-INTERACTIVE PRODUCER [address] [place] [address] Social History Tobacco Use Types Packs/Day Years [...] on filedocumented in this encounter Care Teams Utilities Equipment Repairer Relationship Specialty Start Date End Date Unallocated, [place] [address] PCP - General Family Medicine 11/18/23 01/10/25 Noah Toribio, [address] [place] [address] PCP - [facility] 02/23/24 Ace Weir DO [address] [facility] [address] [place] [address] PCP - General Family Medicine 01/11/25 01/16/25 Unallocated, Noms MD [address] [address] PCP - General Family Medicine 01/17/25 documented as of this encounter
--- OUTSIDE RECORDS SUMMARY | 2025-06-22 09:27 | XMS_ITS | Encounter Summary ---
Author Organization [facility] Address [address] [place] [address] Care Team Providers Care Medical Accountant Name Role Phone Noah Toribio DO Unavailable [phone] Unallocated, Noms Provider Primary Care Provi mike Encounter Details Date Type Department Care Team (Late st Contact Info) Description 04/12/2025 Abstract [facility] Family Medicine [address] [place] [id number] Ace Weir DO [address] [place] [address] Social History Tobacco Use Types Packs/Day Years [...] on filedocumented in this encounter Care Teams Medical Accountant Relationship Specialty Start Date End Date Noah Toribio DO [address] [place] [address] PCP - NOMViktoria Martinez ENERGY CONSERVATION DIRECTOR 02/23/24 Unallocated, Noms Provider, [address] [place] [address] PCP - General Family Medicine 01/17/25 documented as of this encounter
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
--- OUTSIDE RECORDS SUMMARY | 2025-06-22 09:27 | XMS_ITS | Encounter Summary ---
Author Organization [facility] Address [address] [place] [address] Care Team Providers Care City Superintendent [employer] Name Role Phone Noah Toribio DO Unavailable [phone] Unallocated, [facility] Provider Primary Care Provi mike Encounter Details Date Type Department Care Team ([facility] st Contact Info) Description 04/12/2025 Abstract [facility] DEPARTMENT [address] [place] [id number] Ace Weir DO [address] [facility] [address] [place] [address] Social History Tobacco Use Types Packs/Day Years [...] on filedocumented in this encounter Care Teams City [employer] Relationship Specialty Start Date End Date Noah Toribio DO [address] [facility] [address] [place] [address] PCP - CARLOS CR 02/23/24 Unallocated, Noms Provider, [address] [place] [address] PCP - General Family Medicine 01/17/25 documented as of this encounter
--- OUTSIDE RECORDS SUMMARY | 2025-06-22 09:27 | XMS_ITS | Encounter Summary ---
Author Organization [facility] Address [address] [place] [address] Care Team Providers Care Audiovisual Equipment Operator Name Role Phone Noah Toribio DO Unavailable [phone] Unallocated, Noms Provider Primary Care Provi mike Encounter Details Date Type Department Care Team ([facility] st Contact Info) Description 04/12/2025 Abstract [facility] DEPARTMENT [address] [place] [phone] Ace Weir DO [address] [facility] [address] [place] [address] Social History Tobacco Use Types Packs/Day Years [...] on filedocumented in this encounter Care Teams Audiovisual Equipment Operator Relationship Specialty Start Date End Date Noah Toribio DO [address] [facility] [address] [place] [address] PCP - CARLOS CR 02/23/24 Unallocated, Noms Provider, [address] [place] [address] PCP - General Family Medicine 01/17/25 documented as of this encounter
--- OUTSIDE RECORDS SUMMARY | 2025-06-22 09:27 | XMS_ITS | Encounter Summary ---
Author Organization [facility] Address [address] [facility] [place] [address] Care Team Providers Care Mutual Fund Manager Name Role Phone Noah Toribio DO Unavailable [phone] Unallocated, [facility] Provider Primary Care Provi mike Encounter Details Date Type Department Care Team (Late st Contact Info) Description 04/12/2025 Abstract [facility] Family Medicine [address] [place] [phone] Ace Weir DO [address] [facility] [address] [place] [address] Social History Tobacco Use Types Packs/Day Years [...] on filedocumented in this encounter Care Teams Mutual Fund Manager Relationship Specialty Start Date End Date Noah Toribio DO [address] [facility] [address] [place] [address] PCP - [facility] MOLD CAPPER 02/23/24 Unallocated, Noms Provider, [address] [place] [address] PCP - General Family Medicine 01/17/25 documented as of this encounter
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
== END 2025-06-22 09:17 | disposition home or self-care (01) ==
LOC: CT 09:24
DX: S22.081A Stable burst fracture of T11-T12 vertebra, initial encounter for closed fracture (principal); R16.1 Splenomegaly, not elsewhere classified; K80.20 Calculus of gallbladder without cholecystitis without obstruction; S22.088D Other fracture of T11-T12 vertebra, subsequent encounter for fracture with routine healing
CPT/HCPCS: 74150